=== PATIENT | male | born 1970 | race Hispanic/Latino ===

== ENCOUNTER 2018-09-16 13:26 | Emergency (ER) | payer OTHER ==
[~2018-09-16] VITALS: Ht 167.6 cm; Wt 72.6 kg
[2018-09-16] MEDS ORDERED: DOXYCYCLINE HY100 MG PO (15:03)
[2018-09-16] MEDS ORDERED: CIPRO500 MG PO (15:03)
[2018-09-16] MEDS ORDERED: IBUPROFEN600 MG PO (15:03)
== END 2018-09-16 16:16 | disposition home or self-care (01) ==
LOC: ED 13:26
DX: N45.1 Epididymitis (principal)
CPT/HCPCS: 76870; 80053; 81001; 83605; 83690; 85025; 96374; 96375; 99284-25; J0696; J1885; J7060